=== PATIENT | male | born 1980 | race Caucasian/White ===

== ENCOUNTER 2018-06-13 15:19 | Emergency (ER) | payer OTHER ==
[2018-06-13 15:30] VITALS: BP 134/73
[2018-06-13] MEDS ORDERED: DEXAMETHASONE 10 MG/ML VIAL PO STA (15:43)
--- NOTE | 2018-06-13 15:46 | ED Physician Documentation ---
History of Present Illness - Stated complaint Stated Complaint: FACIAL NUMBNESS/EAR PX - Chief complaint Chief Complaint: Heent - History obtained from History obtained from: Patient, Family - History of Present Illness Timing: How many weeks ago (1) Pain level max: 5 Pain level now: 3 Improved by: neck pain better with rest Worsened by: neck pain worse with movement - Additonal information Additional information: Patient is a 37-year-old male who is visiting from [place]. He states that for the past week or so he has had nasal congestion and swollen lymph nodes on his neck. States that he saw an urgent care last week and was diagnosed with a viral syndrome. Since that time he has developed bilateral ear pain and intermittent "kind of numbness". To the bilateral jaw. This is intermittent and occasional. Also woke up this morning with lower neck pain. States it hurts to move and turn his neck, though this has improved since that time. No fevers. Review of Systems Constitutional: denies: Fever, Chills Ears: reports: Ear pain. denies: Drainage/discharge, Tinnitus/ringing Nose: reports: Congestion, Sinus pressure / pain. denies: Rhinorrhea / runny nose Throat: reports: Sore throat (mild) Cardiac: denies: Chest pain / pressure Respiratory: denies: Cough GI: denies: Abdominal Pain, Vomiting, Diarrhea Skin: denies: Rash Musculoskeletal: denies: Back pain Neurologic: denies: Focal weakness, Numbness, Headache, Head injury PD PAST MEDICAL HISTORY - Past Medical History Past Medical History: Yes Musculoskeletal: Chronic back pain (ankylosing spondylitis) - Present Medications Home Medications: Ambulatory Orders Medication Instructions Recorded Confirmed Cetirizine HCl/Pseudoephedrine 1 each PO BID PRN #30 tab.er.12h 06/13/18 [Zyrtec-D Tablet] Concentrix 06/13/18 Dexamethasone [Decadron] 4 mg PO DAILY #3 tablet 06/13/18 - Allergies Allergies/Adverse Reactions: Allergies Allergy/AdvReac Type Severity Reaction Status Date / Time Penicillins Allergy Anaphylaxis Verified 06/13/18 15:31 Sulfa (Sulfonamide Allergy Unknown Verified 06/13/18 15:31 Antibiotics) tramadol Allergy Nausea Verified 06/13/18 15:31 - Living Situation Living Situation: reports: With family Living Arrangement: reports: At home - Social History Does the pt drink ETOH?: Yes Does the pt have substance abuse?: No - Family History Family history: reports: Non contributory PD ED PE NORMAL - Vitals Vital signs reviewed: Yes - General General: Alert and oriented X 3, No acute distress - HEENT HEENT: PERRL, Moist mucous membranes, Other (Left tympanic membrane has clear fluid present, mild bulging. No erythema. Right tympanic membrane is retracted without erythema or fluid. Mild bilateral cervical lymphadenopathy, anterior. No midline tenderness in the neck. Oropharynx reveals cobblestoning in the posterior oropharynx. No tonsillar exudates. Uvula midline. Normal phonation.) - Neck Neck: Supple, no meningeal sign, No bony TTP, No JVD, No bruit, Other ( Paraspinal spasm left low cervical spine. No midline tenderness to palpation or percussion. Full range of motion present.) - Cardiac Cardiac: RRR - Respiratory Respiratory: No respiratory distress, Clear bilaterally - Abdomen Abdomen: Soft, Non tender, Non distended - Derm Derm: Warm and dry - Neuro Neuro: Alert and oriented X 3 - Psych Psych: Normal mood, Normal affect Results - Vitals Vitals: Vital Signs - 24 hr 06/13/18 15:28 Temperature 36.9 C Heart Rate 77 Respiratory 18 Rate Blood Pressure 134/73 H O2 Saturation 98 Oxygen O2 Source Room air PD MEDICAL DECISION MAKING - ED course Complexity details: considered differential, d/w patient, d/w family ED course: Patient is a 37-year-old male who presents to the emergency department with what appears to be a serous otitis media. He is very well-appearing, nontoxic. Appears secondary to eustachian tube dysfunction and a viral URI. No evidence of carotid dissection. No evidence of aortic dissection or aneurysm. Patient counseled regarding signs and symptoms for which I believe and urgent re-evaluation would be necessary. Patient with good understanding of and agreement to plan and is comfortable going home at this time This document was made in part using voice recognition software. While efforts are made to proofread this document, sound alike and grammatical errors may occur. - Sepsis Event Vital Signs: Vital Signs - 24 hr 06/13/18 15:28 Temperature 36.9 C Heart Rate 77 Respiratory 18 Rate Blood Pressure 134/73 H O2 Saturation 98 Oxygen O2 Source Room air Departure - Departure Disposition: 01 Home, Self Care Clinical Impression: Viral syndrome Serous otitis media Qualifiers: Chronicity: acute Laterality: bilateral Recurrence: not specified as recurrent Qualified Code(s): H65.03 - Acute serous otitis media, bilateral Condition: Good Instructions: ED Otitis Media Serous Adult Follow-Up: your,doctor in 1 week if not better [Other] Prescriptions: Cetirizine HCl/Pseudoephedrine [Zyrtec-D Tablet] 1 each PO BID PRN #30 tab.er.12h PRN Reason: Nasal Congestion Dexamethasone [Decadron] 4 mg PO DAILY #3 tablet Comments: Take all medications as prescribed. Return if you worsen. This should improve over the next 24-36 hours. Drink plenty of fluids and rest at home.
== END 2018-06-13 15:58 | disposition home or self-care (01) ==
LOC: ED 15:19
DX: B34.9 Viral infection, unspecified (principal); H65.03 Acute serous otitis media, bilateral
CPT/HCPCS: 99283